=== PATIENT | female | born 1935 | race Hispanic/Latino ===

== ENCOUNTER 2017-05-08 13:10 | Inpatient (IN) | payer MEDICARE ==
[~2017-05-08] VITALS: Ht 152.4 cm; Wt 61.6 kg
[2017-05-08 14:36] LABS: BASOPHILS % (AUTO) 0.6 % (0.0-5.0); EOSINOPHILS % (AUTO) 4.3 % (0.0-8.0); HEMATOCRIT 33.8 % (36-48); LYMPHOCYTES % (AUTO) 34.5 % (21.0-51.0); MEAN CORPUSCULAR HEMOGLOBIN 29.9 pg (27.0-33.0); MEAN CORPUSCULAR HGB CONC 33.4 g/dL (32.0-36.0); MEAN CORPUSCULAR VOLUME 89.4 fL (79-99); MONOCYTES % (AUTO) 7.3 % (3.0-13.0); NEUTROPHILS % (AUTO) 53.3 % (40.0-77.0); PLATELET COUNT (AUTO) 266 K/uL (130-400); RED BLOOD CELL COUNT(AUTO) 3.78 MIL/uL (4.00-5.50)
[2017-05-08] MEDS ORDERED: SODIUM CHLORIDE 0.9% 1000ML 1,000 ML IV ONE (14:47)
[2017-05-08 14:48] LABS: CREATININE 1.3 mg/dL (0.5-1.5); POTASSIUM 4.4 mmol/L (3.5-5.1)
[2017-05-08 14:59] LABS: ALBUMIN 3.7 g/dL (3.5-5.0); BILIRUBIN,TOTAL 0.3 mg/dL (0.2-1.0); TOTAL PROTEIN, SERUM 9.2 g/dL (6.0-8.3)
[2017-05-08] MEDS ORDERED: METHYLPREDNISOLONE SOD SUCC 40MG/ML 1ML ONE (15:05)
[2017-05-08] MEDS ORDERED: LEVOFLOXACIN 750 MG/D5W 150 ML 150 ML ONE (15:05)
[2017-05-08] MEDS ORDERED: ALBUTEROL SULFATE 0.083% 2.5 MG/3 ML INH IH ONE (15:33)
[2017-05-08] MEDS ORDERED: IPRATROPIUM/ALBUTEROL SULFATE 3 ML SOLUTION IH ONE (23:35)
[2017-05-09] MEDS ORDERED: POTASSIUM CHLORIDE 20MEQ/100ML 100 ML IV PRN (01:15)
[2017-05-09] MEDS ORDERED: ONDANSETRON HCL 4 MG/2 ML VIAL IVP PRN (01:15)
[2017-05-09] MEDS ORDERED: LEVOFLOXACIN 500 MG/D5W 100 ML 100 ML IV SCH (01:15)
[2017-05-09] MEDS ORDERED: DEXTROSE 50%-WATER 50 ML DISP.SYRIN IV PRN (01:15)
[2017-05-09] MEDS ORDERED: HYDRALAZINE HCL 20 MG/ML VIAL IV PRN (01:15)
[2017-05-09] MEDS ORDERED: LIDOCAINE HCL-MPF 1% 2ML VIAL IVP PRN (01:15)
[2017-05-09] MEDS ORDERED: MORPHINE SULFATE 2 MG/ML 1ML SYG IVP PRN ×2 (01:15)
[2017-05-09] MEDS ORDERED: ACETAMINOPHEN 325 MG TAB PO PRN (01:15)
[2017-05-09] MEDS ORDERED: CLONIDINE HCL 0.1 MG TABLET PO PRN (01:15)
[2017-05-09] MEDS ORDERED: GLUCAGON 1MG KIT 1 MG ML IM PRN (01:15)
[2017-05-09] MEDS ORDERED: POTASSIUM CHLORIDE 20 MEQ ERTAB PO PRN (01:15)
[2017-05-09] MEDS ORDERED: LACTULOSE 20 GM/30 ML UDCUP PO PRN (01:15)
[2017-05-09] MEDS ORDERED: POTASSIUM CHLORIDE 10% ELIXIR 20 MEQ/15 ML UDCUP PO PRN (01:15)
[2017-05-09] MEDS: IPRATROPIUM/ALBUTEROL SULFATE 3 ML SOLUTION IH SCH ×5 (02:00→22:00)
[2017-05-09 04:00] VITALS: BP 132/69
[2017-05-09 04:04] LABS: BASOPHILS % (AUTO) 0.3 % (0.0-5.0); HEMATOCRIT 28.6 % (36-48); LYMPHOCYTES % (AUTO) 9.6 % (21.0-51.0); MEAN CORPUSCULAR HEMOGLOBIN 29.8 pg (27.0-33.0); MEAN CORPUSCULAR HGB CONC 33.7 g/dL (32.0-36.0); MEAN CORPUSCULAR VOLUME 88.4 fL (79-99); PLATELET COUNT (AUTO) 227 K/uL (130-400); RED BLOOD CELL COUNT(AUTO) 3.24 MIL/uL (4.00-5.50); RED CELL DISTRIBUTION WIDTH 14.2 % (11.0-15.5); WHITE BLOOD COUNT (AUTO) 5.9 K/uL (4.8-10.8)
[2017-05-09] MEDS: FUROSEMIDE 10 MG/ML 2ML VIAL IV SCH ×2 (04:22→14:38)
[2017-05-09 04:27] LABS: CARBON DIOXIDE 25 mmol/L (21-32); CHLORIDE 103 mmol/L (101-111); CREATINE KINASE MB 0.8 ng/mL (0.5-3.6); CREATINE KINASE, TOTAL 89 U/L (21-232); CREATININE 1.6 mg/dL (0.5-1.5); GLOMERULAR FILTR. RATE CALC 33 mL/min (>60); GLUCOSE,RANDOM 254 mg/dL (70-105); MYOGLOBIN 62 ng/mL (10-92); SODIUM SERUM 136 mmol/L (136-145); TROPONIN I < 0.04 ng/mL (0.00-0.06); UREA NITROGEN, BLOOD 22 mg/dL (7-18)
[2017-05-09 05:01] LABS: NEUTROPHILS % (AUTO) 88.1 % (40.0-77.0)
[2017-05-09] MEDS: INSULIN HUMULIN R 100 UNIT/ML 3ML SQ SCH ×4 (06:23→20:29)
[2017-05-09 07:00] VITALS: BP 152/83
[2017-05-09] MEDS ORDERED: FLU VACC QS2017-18 36MOS UP/PF 60 MCG/0.5 ML ML IM SCH (07:30)
[2017-05-09] MEDS ORDERED: GUAIFENESIN-DM 200/20 MG 10 ML ONE ×2 (09:02→14:36)
[2017-05-09] MEDS: FAMOTIDINE 20MG TAB 20 MG TAB PO SCH ×2 (09:06→20:24)
[2017-05-09 11:00] VITALS: BP 127/64
[2017-05-09] MEDS: LEVOFLOXACIN 500 MG/D5W 100 ML 100 ML IV SCH (14:38)
[2017-05-09] MEDS ORDERED: INSLAN SQ (14:51)
[2017-05-09] MEDS ORDERED: MV C1CAP5 PO (14:51)
[2017-05-09] MEDS ORDERED: LINA5TAB PO (14:51)
[2017-05-09] MEDS ORDERED: METO25TA6 PO (14:51)
[2017-05-09] MEDS ORDERED: FURO20TA4 PO (14:51)
[2017-05-09] MEDS ORDERED: BENZ200C53 PO (14:51)
[2017-05-09] MEDS ORDERED: ATOR20TA65 PO (14:51)
[2017-05-09 16:00] VITALS: BP 134/49
[2017-05-09 20:00] VITALS: BP 134/66
[2017-05-09] MEDS: GUAIFENESIN-DM 200/20 MG 10 ML PO PRN (23:23)
[2017-05-09 23:54] VITALS: BP 131/62
[2017-05-10] MEDS: IPRATROPIUM/ALBUTEROL SULFATE 3 ML SOLUTION IH SCH ×5 (01:40→23:29)
[2017-05-10] MEDS: FUROSEMIDE 10 MG/ML 2ML VIAL IV SCH (02:01)
[2017-05-10 04:00] VITALS: BP 146/75
[2017-05-10 04:49] LABS: MEAN CORPUSCULAR HEMOGLOBIN 29.7 pg (27.0-33.0); MEAN CORPUSCULAR HGB CONC 33.6 g/dL (32.0-36.0); MEAN CORPUSCULAR VOLUME 88.4 fL (79-99); PLATELET COUNT (AUTO) 265 K/uL (130-400); RED CELL DISTRIBUTION WIDTH 14.3 % (11.0-15.5); WHITE BLOOD COUNT (AUTO) 7.7 K/uL (4.8-10.8)
[2017-05-10 05:09] LABS: CREATININE 1.9 mg/dL (0.5-1.5)
[2017-05-10] MEDS: INSULIN HUMULIN R 100 UNIT/ML 3ML SQ SCH ×4 (06:26→21:02)
[2017-05-10 07:52] VITALS: BP 135/65
[2017-05-10] MEDS: SE TAN PLUS PO SCH (09:00)
[2017-05-10] MEDS: BENZONATATE 100 MG CAPSULE PO SCH ×3 (11:00→20:56)
[2017-05-10] MEDS: METOPROLOL TARTRATE 25 MG TAB PO SCH ×2 (11:00→20:56)
[2017-05-10] MEDS: FAMOTIDINE 20MG TAB 20 MG TAB PO SCH ×2 (11:00→20:56)
[2017-05-10] MEDS: LINAGLIPTIN 5 MG TABLET PO SCH (11:01)
[2017-05-10 11:24] VITALS: BP 135/61
[2017-05-10] MEDS: LEVOFLOXACIN 500 MG/D5W 100 ML 100 ML IV SCH (14:57)
[2017-05-10 16:20] VITALS: BP 128/65
[2017-05-10] MEDS ORDERED: INSULIN GLARGINE 100 UNITS/ML 10 ML VIAL SQ SCH (17:00)
[2017-05-10 19:30] VITALS: BP 118/61
[2017-05-10] MEDS: GUAIFENESIN-DM 200/20 MG 10 ML PO PRN (20:56)
[2017-05-10] MEDS ORDERED: ATORVASTATIN CALCIUM 20 MG TABLET PO SCH (21:00)
[2017-05-10 23:45] VITALS: BP 131/70
[2017-05-11 03:48] VITALS: BP 130/74
[2017-05-11 04:36] LABS: CREATININE 1.7 mg/dL (0.5-1.5); POTASSIUM 3.7 mmol/L (3.5-5.1)
[2017-05-11] MEDS: INSULIN HUMULIN R 100 UNIT/ML 3ML SQ SCH (05:33)
[2017-05-11] MEDS: IPRATROPIUM/ALBUTEROL SULFATE 3 ML SOLUTION IH SCH ×2 (06:28→11:17)
[2017-05-11 08:11] VITALS: BP 122/65
[2017-05-11] MEDS ORDERED: FUROSEMIDE 20 MG TABLET PO SCH (09:00)
[2017-05-11] MEDS: SE TAN PLUS PO SCH (09:00)
[2017-05-11] MEDS: FAMOTIDINE 20MG TAB 20 MG TAB PO SCH (10:19)
[2017-05-11] MEDS: BENZONATATE 100 MG CAPSULE PO SCH (10:19)
[2017-05-11] MEDS: LINAGLIPTIN 5 MG TABLET PO SCH (10:19)
[2017-05-11] MEDS: METOPROLOL TARTRATE 25 MG TAB PO SCH (10:19)
[2017-05-11 11:21] VITALS: BP 123/52
== END 2017-05-11 13:45 | disposition home or self-care (01) | DRG 291 ==
LOC: EDH 13:10 → OBSVTOIN 16:20 → EDHIP 16:20 → 3AH 23:12
PROVIDERS: ADMIT Internal Medicine; ATTEND Internal Medicine
DX: I13.0 Hypertensive heart and chronic kidney disease with heart failure and stage 1 through stage 4 chronic kidney disease, or unspecified chronic kidney disease (principal); I50.23 Acute on chronic systolic (congestive) heart failure; J20.9 Acute bronchitis, unspecified; E11.9 Type 2 diabetes mellitus without complications; N18.3 Chronic kidney disease, stage 3 (moderate); Z95.1 Presence of aortocoronary bypass graft; E78.5 Hyperlipidemia, unspecified; I25.10 Atherosclerotic heart disease of native coronary artery without angina pectoris
CPT/HCPCS: 36415; 71045; 71250; 80048; 80053; 82550; 82553; 82948; 83605; 83874; 83880; 84484; 85025; 85027; 87040; 87804; 93005; 93306; 94640; 94664; J1815; J1940; J1956; J2920; J7030